=== PATIENT | female | born 2000 | race Caucasian/White ===

== ENCOUNTER → 2022-04-14 | Outpatient (CLI) | payer SELFPAY ==
--- NOTE | 2022-04-14 14:36 | BD_ITS ---
STUDY: DUAL ENERGY X-RAY ABSORPTIOMETRY / DXA REASON FOR EXAM: Female, 21 years old. G40.009 -- LOCAL-REL IDIO EPI TECHNIQUE: Bone Mineral Density (BMD) measurements of lumbar spine and bilateral hips were obtained. COMPARISON: None. FINDINGS: Lumbar Spine (L1-L4): g/cm2 (1.049) / T-score (0.0) / Z-score (0.2) Findings are suggestive of normal bone density with a low fracture risk. Left Femur Total: g/cm2 (0.933) / T-score (-0.1) / Z-score (-0.1) Left Femoral Neck: g/cm2 (0.771) / T-score (-0.7) / Z-score (-0.7) Right Femur Total: g/cm2 (0.949) / T-score (0.1) / Z-score (0.1) Right Femoral Neck: g/cm2 (0.824) / T-score (-0.2) / Z-score (-0.2) BD/Dexa Bone Density Study IMPRESSION: The patient is considered normal as outlined below according to World Michael Organization (WHO) criteria with a low fracture risk. Reference Information: The T-score is the number of standard deviations above or below the standard which is normal for young adults at their peak bone mineral density. The World Health Organization (WHO) interprets the T-scores as follows: Above -1 Normal bone density Between -1 and -2.5 Osteopenia Equal to / or below -2.5 Osteoporosis As a practical clinical guideline, osteopenia may be graded as follows: Mild -1 through -1.5 Moderate -1.6 through -2.0 Severe -2.1 through -2.4 The Z-score is the number of standard deviations above or below age-matched controls. A Z-score of less than -1.5 would be considered abnormal. References: 1. NIH Osteoporosis and Related Bone Diseases www osteo.org 2. International Society for Clinical Densitometry www iscd.org 3. National Osteoporosis Foundation www nof.org Electronically Signed: Lukasz Avila MD at 13:23 EST ,
== END | disposition home or self-care (01) ==
LOC: OPBD 14:29
DX: M85.80 Other specified disorders of bone density and structure, unspecified site (principal); G40.009 Localization-related (focal) (partial) idiopathic epilepsy and epileptic syndromes with seizures of localized onset, not intractable, without status epilepticus
CPT/HCPCS: 77080